=== PATIENT | male | born 1995 | race Caucasian/White ===

== ENCOUNTER → 2016-08-26 | Outpatient (CLI) | payer OTHER ==
--- NOTE | 2016-08-26 18:17 | XR ---
EXAMINATION TYPE: XR thoracic spine complete DATE OF EXAM: 08/26/2016 6:14 PM COMPARISON: NONE HISTORY: Back pain TECHNIQUE: 3 views FINDINGS: Vertebra have normal spacing and alignment. Posterior elements are intact. There is no para spinal mass. There is no compression fracture. IMPRESSION: Normal thoracic spine.
--- NOTE | 2016-08-26 18:18 | XR ---
EXAMINATION TYPE: XR cervical spine comp DATE OF EXAM: 08/26/2016 6:13 PM COMPARISON: NONE HISTORY: Back pain TECHNIQUE: 5 views FINDINGS: The cervical vertebra have normal spacing and alignment. Posterior elements are intact. Tristan ral foramina are widely patent. There are no cervical ribs. IMPRESSION: Normal cervical spine
--- NOTE | 2016-08-26 18:19 | XR ---
EXAMINATION TYPE: XR chest 2V DATE OF EXAM: 08/26/2016 6:13 PM COMPARISON: NONE HISTORY: Back pain TECHNIQUE: Frontal and lateral views of the chest are obtained. FINDINGS: Heart and mediastinum are normal. Lungs are clear. Diaphragm is normal. Bony thorax appear s normal. IMPRESSION: Normal chest. No change.
== END ==
LOC: RADXRMAIN 17:41
PROVIDERS: ATTEND Emergency Medicine
DX: S13.4XXA Sprain of ligaments of cervical spine, initial encounter (principal); S23.3XXA Sprain of ligaments of thoracic spine, initial encounter; R07.1 Chest pain on breathing
CPT/HCPCS: 71020; 72050; 72072

== ENCOUNTER 2018-12-09 17:35 | Emergency (ER) | payer BC ==
[2018-12-09 17:52] VITALS: BP 125/90; PULSE 85; RESP 18; TEMP 97.6
[2018-12-09] MEDS ORDERED: IBUPROFEN 600 MG TAB PO STA (18:13)
[2018-12-09] MEDS ORDERED: CIPROFLOXACIN HCL 500 MG TAB PO STA (18:28)
--- NOTE | 2018-12-09 18:29 | XR ---
EXAMINATION TYPE: XR foot limited RT DATE OF EXAM: 12/09/2018 COMPARISON: NONE HISTORY: Nail in the foot TECHNIQUE: 2 views. FINDINGS: There is a single male type foreign body in the soft tissues at the nailbed of the big toe. I see no fracture nor dislocation. Joint spaces appear normal. Exam is limited by the overlying artifact. IMPRESSION: Nail foreign body in the big toe.
--- NOTE | 2018-12-09 18:53 | ED ---
General Adult HPI - General Chief complaint: Extremity Injury, Lower Stated complaint: Nail in Foot Time Seen by Provider: 12/09/18 18:07 Source: patient, RN notes reviewed, old records reviewed Mode of arrival: ambulatory Limitations: no limitations - History of Present Illness Initial comments: 23-year-old male patient presents to ED with chief complaint of shooting a maya nail into his right great toe. This did cut the anterior aspect of food. Patient denies any other complaints at this time. Patient reports that his tetanus is up-to-date. Denies any other complaints at this time. Systemic: Pt denies fatigue, fever/chills, rash. Pt denies weakness, night sweats, weight loss. Neuro: Pt denies headache, visual disturbances, syncope or pre-syncope. HEENT: Pt denies ocular discharge or irritation, otalgia, rhinorrhea, pharyngitis or notable lymphadenopathy. Cardiopulmonary: Pt denies chest pain, SOB, heart palpitations, dyspnea on exer tion. Abdominal/GI: Pt denies abdominal pain, n/v/d. : Pt denies dysuria, burning w/ urination, frequency/urgency. Denies new onset urinary or bowel incontinence. MSK: Pt denies myalgia, loss of strength or function in extremities. Neuro: Pt denies new onset weakness, paresthesias. - Related Data Previous Rx's Medication Instructions Recorded Amoxicillin 500 mg PO Q8H #21 capsule 10/06/15 Ibuprofen [Motrin] 600 mg PO Q6HR PRN #20 tab 10/06/15 Ciprofloxacin HCl [Cipro] 500 mg PO Q12HR #20 day 12/09/18 Allergies Allergy/AdvReac Type Severity Reaction Status Date / Time clarithromycin [From Biaxin] Allergy Unknown Verified 12/09/18 17:52 Childhood Review of Systems ROS Statement: Those systems with pertinent positive or pertinent negative responses have been documented in the HPI. ROS Other: All systems not noted in ROS Statement are negative. Past Medical History Past Medical History: No Reported History History of Any Multi-Drug Resistant Organisms: None Reported Past Surgical History: No Surgical Hx Reported Past Psychological History: No Psychological Hx Reported Smoking Status: Current every day smoker Past Alcohol Use History: None Reported Past Drug Use History: None Reported General Exam - General Exam Comments Initial Comments: Constitutional: NAD, AOX3, Pt has pleasant affect. HEENT: NC/AT, trachea midline, neck supple, no lymphadenopathy. Posterior pharynx non erythematous, without exudates. External ears appear normal, without discharge. Mucous membranes moist. Eyes PERRLA, EOM intact. There is no scleral icterus. No pallor noted. Cardiopulmonary: RRR, no murmurs, rubs or gallops, no JVD noted. Lungs CTAB in anterior and posterior bhatt. No peripheral edema. Abdominal exam: Abdomen soft and non-distended. Abdomen non-tender to palpation in all 4 quadrants. Bowel sounds active in LLQ. No hepatosplenomegaly. No ecchymosis Neuro: CN II-XII grossly intact. No nuchal rigidity. No raccon eyes, no wheeler sign, no hemotympanum. No cervical spinal tenderness. MSK: Nail noted going through anterior aspect of left boot, plain films displayed entrance to the soft tissue of left great toe, was removed with pliers with attending physician Dr. Diego. Patient tired procedure well, evaluation of great toe reveals that the nail did go through the great toenail. Full active range of motion of toe, capillary refill less than 2 seconds. No posterior calf tenderness bilaterally, homans sign negative bilaterally. Posterior tibialis and radial pulse +2 bilaterally. Sensation intact in upper and lower extremities. Full active ROM in upper and lower extremities, 5/5 stregnth. Limitations: no limitations Course Vital Signs 12/09/18 17:50 Temperature 97.6 F Pulse Rate 85 Respiratory 18 Rate Blood Pressure 125/90 O2 Sat by Pulse 100 Oximetry Medical Decision Making - Medical Decision Making 23-year-old male patient presents to ED after shooting his right foot with a nail gun. Patient works his tetanus is up-to-date. Patient vital signs stable, afebrile. Physical exam displayed a nail going through boot plain film displayed Murphy nail going the soft tissues of the foot, no osseous involvement. He has been pliers, patient had to do well. Patient will be placed on ciprofloxacin twice a day for 10 days. Patient will follow up with orthopedic consult for further evaluation. Return precautions discussed. Case discussed with Dr. Diego. Disposition Clinical Impression: Foreign body of toe Disposition: HOME SELF-CARE Condition: Stable Instructions (If sedation given, give patient instructions): Soft Tissue Foreign Body (ED) Additional Instructions: Patient to adhere to previously discussed treatment plan and will take medication(s) as directed. Patient to follow up with PCP in 1-2 days. Patient to return to ED if symptoms do not improve. Take medication as directed. Follow up with primary care provider and orthopedic consult on Wednesday. Return immediately to ER if condition worsens or infection develops. Please monitor for signs and symptoms of infection including: redness, warmth, drainage, discharge. Please return to ED if these signs or symptoms occur, new signs or symptoms develop or if condition worsens in anyway. Prescriptions: Ciprofloxacin HCl [Cipro] 500 mg PO Q12HR #20 day Is patient prescribed a controlled substance at d/c from ED?: No Referrals: Basil Torrez MD [Primary Care Provider] - 1-2 days Bartolo Cifuentes PAC [PHYSICIAN C[employer] SERVICES COUNSELOR] - 1-2 days
== END 2018-12-09 19:06 | disposition home or self-care (01) ==
LOC: EC 17:35
DX: S90.451A Superficial foreign body, right great toe, initial encounter (principal); F17.200 Nicotine dependence, unspecified, uncomplicated; Z88.1 Allergy status to other antibiotic agents; W45.0XXA Nail entering through skin, initial encounter
CPT/HCPCS: 99284

== ENCOUNTER 2019-01-02 11:22 | Emergency (ER) | payer BC, OTHER ==
[2019-01-02 11:35] VITALS: TEMP 97.7
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
--- NOTE | 2019-01-02 12:12 | CT ---
EXAMINATION TYPE: CT brain gisell soni DATE OF EXAM: 01/02/2019 COMPARISON: NONE HISTORY: head and neck pain post fall off ladder CT DLP: 1194.9 mGycm. Automated Exposure Control for Dose Reduction was Utilized. TECHNIQUE: CT scan of the head and cervical spine are performed without contrast. FINDINGS: There is no acute intracranial hemorrhage, mass effect, or midline shift identified. The ventricles and sulci are within normal limits in size. There is posterior CSF prominence, probable 3 .4 x 2.2 cm arachnoid cyst axial image 26 with local mass effect. The calvarium is intact. The globes are intact and the visualized sinuses are clear. Cervical spine is visualized in its entirety from C1 through upper thoracic levels and demonstrates s atisfactory alignment without evidence of acute fracture or dislocation. Prevertebral soft tissue ap pears within normal limits. The C1-C2 articulation is within normal limits on the coronal images. V ertebral body heights and disc space heights are maintained. Posterior spur disc complex effaces the anterior thecal sac C6-C7 level. Visualized portion of the thyroid gland is within normal limits. Shelton g apices show mild posterior scarring. IMPRESSION: 1. There is no acute fracture or dislocation evident in the cervical spine. 2. No acute intracranial hemorrhage, mass effect, or midline shift is seen.
--- NOTE | 2019-01-02 12:38 | XR ---
EXAMINATION TYPE: XR hand complete LT DATE OF EXAM: 01/02/2019 CLINICAL HISTORY: Fall injury Wednesday with pain worse over third finger. TECHNIQUE: Frontal, lateral and oblique images of the left hand are obtained. COMPARISON: None. FINDINGS: There is no acute fracture/dislocation evident in the left hand. The joint spaces in the l eft hand appear within normal limits. The overlying soft tissue appears unremarkable. IMPRESSION: There is no acute fracture or dislocation in the left hand.
--- NOTE | 2019-01-02 12:43 | XR ---
EXAMINATION TYPE: XR chest 2V DATE OF EXAM: 01/02/2019 COMPARISON: Prior chest x-ray 08/26/2016 HISTORY: Trauma and subscapular pain TECHNIQUE: Frontal and lateral views of the chest are obtained. FINDINGS: There is no focal air space opacity, pleural effusion, or pneumothorax seen. The cardiac silhouette size is within normal limits. The osseous structures are intact. IMPRESSION: No acute cardiopulmonary process.
--- NOTE | 2019-01-02 12:47 | XR ---
Right scapula HISTORY: Trauma and pain 3 views of the right scapula Bone mineralization, joint spaces and alignment are maintained. IMPRESSION: No fracture or dislocation.
[2019-01-02] MEDS ORDERED: ETODOLAC 400 MG TAB PO STA (13:45)
[2019-01-02 13:53] LABS: Appearance,Urine Clear (Clear); Bilirubin,Urine Negative (Negative); Blood,Urine Negative (Negative); Color,Urine Yellow; Glucose,Urine (UA) Negative (Negative); Ketones,Urine Negative (Negative); Leukocyte Esterase,Urine Negative (Negative); Nitrite,Urine Negative (Negative); PH, Urine 7.5 (5.0-8.0); Protein,Urine Negative (Negative); Specific Gravity,Urine 1.021 (1.001-1.035)
[2019-01-02] MEDS ORDERED: ACET/COD 300 MG/30 MG STARTER PACK 6 TAB BTL PO STA (14:31)
[2019-01-02 14:39] VITALS: BP 121/73; PULSE 72; RESP 16
--- NOTE | 2019-01-03 07:51 | CDI ---
Documentation Clarification OP Dear Dony HOOPER MD Please provide contusion specific site. Thank you, Amy Trinidad [employer] If you have any questions, please contact [facility] at [phone] [facility]
[2019-01-03] MEDS ORDERED: ETODOLAC 400 MG TAB PO SCH (09:00)
== END 2019-01-02 14:35 | disposition home or self-care (01) ==
LOC: EC 11:22
DX: S16.1XXA Strain of muscle, fascia and tendon at neck level, initial encounter (principal); S40.011A Contusion of right shoulder, initial encounter; S90.32XA Contusion of left foot, initial encounter; R51 Headache; M25.532 Pain in left wrist; F17.200 Nicotine dependence, unspecified, uncomplicated; Z88.1 Allergy status to other antibiotic agents; W11.XXXA Fall on and from ladder, initial encounter
CPT/HCPCS: 70450; 71046; 72125; 81003; 99284